=== PATIENT | male | born 1970 | race Caucasian/White ===

== ENCOUNTER 2022-06-08 05:24 | Emergency (ER) | payer OTHER, MEDICAID ==
[~2022-06-08] VITALS: Ht 154.9 cm; Wt 74.8 kg
[2022-06-08 05:27] VITALS: BP_SYST 148
--- NOTE | 2022-06-08 05:36 | NUR ---
Patient brought in by law enforcement for a [facility] clearance. 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 VSS. Patient alert and oriented. respirations WNL. no other complaints from patient
--- NOTE | 2022-06-08 05:39 | NUR ---
ER at bedside examining patient.
--- NOTE | 2022-06-08 05:41 | NUR ---
PAtient triaged and placed in chair 1.
--- NOTE | 2022-06-08 05:48 | NUR ---
Patient given written and verbal discharge instructions and verbalizes understanding. ER MD discussed with patient the results and treatment provided. Patient in stable condition. ID arm band removed. Patient educated on pain management and to follow up with PMD. Pain Scale 0. Opportunity for questions provided and answered. Medication side effect fact sheet provided.
[2022-06-08 05:49] VITALS: BP_SYST 148
== END 2022-06-08 05:48 ==
LOC: SED 05:24
DX: E11.65 Type 2 diabetes mellitus with hyperglycemia (principal); F10.129 Alcohol abuse with intoxication, unspecified; F12.90 Cannabis use, unspecified, uncomplicated; Z79.899 Other long term (current) drug therapy; Y90.6 Blood alcohol level of 120-199 mg/100 ml
CPT/HCPCS: 99283